=== PATIENT | male | born 1980 | race American Indian/Alaskan Native ===

== ENCOUNTER 2018-02-13 17:34 | Emergency (ER) | payer SELFPAY ==
[2018-02-13 17:44] VITALS: BP 113/64
[2018-02-13] MEDS ORDERED: NORCO 5/325 PO STA (19:43)
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
== END 2018-02-13 21:28 | disposition home or self-care (01) ==
LOC: ED 17:34
DX: S60.011A Contusion of right thumb without damage to nail, initial encounter (principal); F17.200 Nicotine dependence, unspecified, uncomplicated; F12.10 Cannabis abuse, uncomplicated; F32.9 Major depressive disorder, single episode, unspecified; F14.10 Cocaine abuse, uncomplicated; W22.8XXA Striking against or struck by other objects, initial encounter; Y93.89 Activity, other specified; Y92.89 Other specified places as the place of occurrence of the external cause; Y99.8 Other external cause status